=== PATIENT | male | born 1985 | race Caucasian/White ===

== ENCOUNTER 2022-10-13 19:05 | Emergency (ER) | payer BC, OTHER ==
[2022-10-13 20:52] VITALS: BP 127/80; PULSE 65
== END 2022-10-13 20:51 | disposition home or self-care (01) ==
LOC: JD.ED 19:05
DX: S02.5XXB Fracture of tooth (traumatic), initial encounter for open fracture (principal); Z79.899 Other long term (current) drug therapy; W50.3XXA Accidental bite by another person, initial encounter
CPT/HCPCS: 99282